=== PATIENT | female | born 1955 | race Caucasian/White ===

== ENCOUNTER → 2017-08-10 | Outpatient (CLI) | payer BC ==
--- NOTE | 2017-08-10 10:24 | MR ---
EXAMINATION TYPE: MR lumbar spine wo con DATE OF EXAM: 08/10/2017 COMPARISON: NONE HISTORY: Intervertebral disc disorder with radiculopathy-lumbar spine TECHNIQUE: Multiplanar, multisequence images of the lumbar spine were acquired. FINDINGS: Lumbar spine vertebral body heights are maintained. Extensive disc desiccation is seen at m ultiple levels. Schmorl's nodes are noted at the inferior endplate of L2 and superior endplate of L3 with no I signal within the discs to indicate discitis. Schmorl's node is also seen of the anterior s uperior endplate of L5. There is grade 1 anterolisthesis of L4 on L5, grade 1 retrolisthesis of L1 on L2 and grade 1 retrolisthesis of L2 on L3. Malalignment is likely on a degenerative basis. No focal bone marrow edema to suggest underlying fracture or linear T1 signal. Mild dextroscoliotic curvature is seen of the thoracolumbar junction on the localizer images. Multilevel undulation of the filum ter minale is seen from multilevel spinal canal stenosis. Conus medullaris is noted to lower limits of no rmal terminating at L2. Conus medullaris is of normal morphology. T12-L1: Left eccentric broad-based disc bulge results in mild left neural foraminal narrowing. Right neural foramen and spinal canal appear patent. Minimal ligamentum flavum buckling is seen. L1-L2: Central disc herniation/protrusion is superimposed upon a broad-based disc bulge. Facet arthro sheela contributes to severe left neural foraminal narrowing and moderate right neuroforaminal narrowi ng. Moderate spinal canal stenosis is seen as a result of the disc herniation and ligamentum flavum b uckling. L2-L3: There is a left lateral disc herniation superimposed upon a broad-based disc bulge create daria re left neural foraminal narrowing. Severe right neuroforaminal narrowing is also identified as a res ult of facet arthropathy and a broad-based disc bulge. Ligamentum flavum buckling is also seen at thi s level creating moderate spinal canal stenosis. L3-L4: Broad-based disc bulge, facet arthropathy and ligamentum flavum buckling contribute to moderat e to severe spinal canal stenosis focally, severe right neural foraminal narrowing and mild left neur al foraminal narrowing. L4-L5: Disc uncovering from the anterolisthesis is noted in combination with a broad-based disc bulge , facet arthropathy and ligamentum flavum buckling. There is resultant severe bilateral neural forami nal narrowing and severe spinal canal stenosis. L5-S1: There is a large broad-based disc bulge and facet arthropathy moderately narrowing the bilater al neural foramen. Spinal canal is patent. IMPRESSION: 1. Severe multilevel disc disease and mild dextroscoliosis of the thoracolumbar junction. 2. Central disc herniation at L1-L2 superimposed upon degenerative changes resulting in severe left n eural foraminal narrowing and moderate right neural foraminal narrowing as well as moderate spinal ca nal stenosis. 3. Left lateral disc herniation at L2-L3 in combination with degenerative changes create severe bilat eral neural foraminal narrowing and moderate spinal canal stenosis. 4. Degenerative disc disease at L3-L4 creates severe right neural foraminal narrowing, moderate spina l canal stenosis and mild left neural foraminal narrowing. 5. Degenerative disc disease and disc uncovering from grade 1 anterolisthesis of L4 and L5 combinatio n with degenerative changes resulting in severe bilateral neural foraminal narrowing and severe spina l canal stenosis. 6. Mild retrolisthesis of L1 on L2 and L2 on L3.
== END | disposition home or self-care (01) ==
LOC: RADMRIMAIN 08:58
PROVIDERS: ATTEND Family Medicine
DX: M48.061 Spinal stenosis, lumbar region without neurogenic claudication (principal); M51.16 Intervertebral disc disorders with radiculopathy, lumbar region; M99.73 Connective tissue and disc stenosis of intervertebral foramina of lumbar region; M43.16 Spondylolisthesis, lumbar region; M47.26 Other spondylosis with radiculopathy, lumbar region
CPT/HCPCS: 72148

== ENCOUNTER 2020-06-22 10:48 | Emergency (ER) | payer BC ==
[2020-06-22 11:08] VITALS: RESP 18; TEMP 98.8
--- NOTE | 2020-06-22 11:51 | ED ---
Extremity Problem HPI - General Chief complaint: Extremity Problem,Nontraumatic Stated complaint: lt shoulder pain Time Seen by Provider: 06/22/20 11:25 Source: patient, RN notes reviewed Mode of arrival: ambulatory Limitations: no limitations - History of Present Illness Initial comments: 64 year old female presents emergency Department chief complaint of left shoulder pain. Patient states she just started having pain after movement yesterday. She states she has no pain at rest that she has extreme pain she tries to move her shoulder states that causes her to cry. She has no chest pain or shortness breath she did take Leighton for pain which helped some. No paresthesias. No neck pain. Denies any falls or any trauma. - Related Data Allergies Allergy/AdvReac Type Severity Reaction Status Date / Time Penicillins Allergy Rash/Hives Verified 06/22/20 11:08 Review of Systems ROS Statement: Those systems with pertinent positive or pertinent negative responses have been documented in the HPI. ROS Other: All systems not noted in ROS Statement are negative. Past Medical History Past Medical History: No Reported History History of Any Multi-Drug Resistant Organisms: None Reported Past Surgical History: Orthopedic Surgery, Tonsillectomy Past Psychological History: Anxiety Smoking Status: Current every day smoker Past Alcohol Use History: None Reported Past Drug Use History: None Reported General Exam Limitations: no limitations General appearance: alert, in no apparent distress Head exam: Present: atraumatic, normocephalic, normal inspection ENT exam: Present: normal exam, normal oropharynx, mucous membranes moist Neck exam: Present: normal inspection, full ROM. Absent: tenderness, menin gismus, lymphadenopathy Respiratory exam: Present: normal lung sounds bilaterally. Absent: respiratory distress, wheezes, rales, rhonchi, stridor Cardiovascular Exam: Present: regular rate, normal rhythm, normal heart sounds. Absent: systolic murmur, diastolic murmur, rubs, gallop, clicks Extremities exam: Present: other (Left shoulder minimal tenderness with palpation patient reports marked severe pain with range of motion passive or active, limited radial pulses equal bilaterally Refill less than 2 seconds toe closing machine tender strength equal) Back exam: Present: full ROM. Absent: tenderness, paraspinal tenderness Neurological exam: Present: alert, oriented X3 Course Vital Signs 06/22/20 11:05 Temperature 98.8 F Pulse Rate 90 Respiratory 18 Rate Blood Pressure 173/69 O2 Sat by Pulse 98 Oximetry - Reevaluation(s) Reevaluation #1: 06/22/20 12:56 Patient reevaluated and updated on x-ray results she again denies she had any fall she has no other areas of tenderness with palpation on the left shoulder she is updated that CT will be ordered patient provided pain medication. Medical Decision Making - Medical Decision Making 64-year-old presented with left shoulder pain x-ray showed evidence of scapular fracture patient was reevaluated and had no other areas of localized tenderness CT was ordered patient refuses. He shouldn't denies any falls. Patient is not be intact. Patient is here with family member who states she is at her baseline. Patient be discharged to orthopedics return parameters were discussed Disposition Clinical Impression: Left scapula fracture Disposition: HOME SELF-CARE Condition: Stable Instructions (If sedation given, give patient instructions): Scapular Fracture (ED) Additional Instructions: Please return to the Emergency Department if symptoms worsen or any other concerns. Is patient prescribed a controlled substance at d/c from ED?: No Referrals: Pastor Roberts MD [Primary Care Provider] - 1-2 days Tavares Balderas MD [STAFF PHYSICIAN] - 1-2 days Time of Disposition: 13:39
--- NOTE | 2020-06-22 12:38 | XR ---
EXAMINATION TYPE: XR shoulder complete LT DATE OF EXAM: 06/22/2020 COMPARISON: NONE HISTORY pain. TECHNIQUE: Three views are submitted. FINDINGS: : Chronic appearing deformity of the left shoulder with severe arthropathy. There does appear to be a lucency through the acromium and spine of the scapula suggestive of fracture. IMPRESSION: 1. Findings are suggestive of a scapular fracture near the level of the acromium. Correlate with poin t tenderness. 2. Severe arthropathy of the glenohumeral joint with remodeling of the humeral head.
[2020-06-22] MEDS ORDERED: HYDROmorphone 1 MG/ML 1 ML SYRINGE IM STA (12:53)
[2020-06-22] MEDS ORDERED: HYDROcodone/APAP 5-325MG 1 EACH TAB PO STA (12:59)
[2020-06-22 14:10] VITALS: BP 189/92; PULSE 88
== END 2020-06-22 14:07 | disposition home or self-care (01) ==
LOC: EC 10:48
DX: S42.102A Fracture of unspecified part of scapula, left shoulder, initial encounter for closed fracture (principal); F17.200 Nicotine dependence, unspecified, uncomplicated; Z88.0 Allergy status to penicillin; X58.XXXA Exposure to other specified factors, initial encounter
CPT/HCPCS: 99283

== ENCOUNTER → 2021-02-24 | Outpatient (CLI) | payer BC ==
[2021-02-24 08:30] VITALS: BP 150/93; RESP 18; TEMP 97.8
--- NOTE | 2021-02-24 08:46 | P.PAINCN ---
History of Present Illness - Reason for Consult Consult date: 02/24/21 - History of Present Illness This is a 65-year-old patient referred by Dr. Martínez with a chief complaint of chronic pain in the left low back with radiation into the left posterior thigh. Patient says she's had the pain for many years. Pain is described as sharp stabbing and throbbing. Pain is made worse with physical activity to the point where she is now wheelchair-bound. Pain also worse with sitting. Pain is helped only minimally with her medication. Pain is worse in the morning. Currently 9 out of 10. In regards to management she is on a significant amount of Percocet taking 10 mg 4-5 times a day in addition to Xanax 0.5 mg 3 times a day. She has tried physical therapy and medical care administrator but that did not help at all, commenting that it actually made her pain worse. She had some type of injection of Dr. Fleming but she is not sure what it was and is not sure if it helped. . Patient denies adverse drug effects from medications. Patient also denies new-onset weakness, bowel/bladder incontinence, or any other signs or symptoms of cauda equina syndrome. There are no signs of acute intoxication, and no indications of medication diversion or overuse In addition to above, 13-point review of systems is also negative for chest pain, shortness of breath, changes in vision, changes in hearing, new onset weakness, abdominal pain, diarrhea, extreme fatigue, malaise, fever, skin changes, homicidal or suicidal ideation, or bowel or bladder incontinence. Physical exam: Vital Signs: Reviewed in EMR GENERAL: obese, wheelchair bound PSYCH: Mood and affect is appropriate. Awake, alert, and oriented SKIN: Skin color, texture, turgor normal, no rashes or lesions HEENT: Normocephalic, atraumatic. EOM intact CV: No pedal edema RESP: Respirations are unlabored, no audible wheezing GI: Abdomen non-distended MUSCULOSKELETAL: Bilateral upper and lower extremity strength is normal and symmetric. No atrophy or tone abnormalities are noted. Lumbar spine: Straight leg raising in the sitting position is negative for radicular pain. pain to palpation over the lumbar spine and paraspinous muscles. positive for pain with facet loading and back extension/rotation. decreased range of motion Buttocks: pain to palpation over the PSIS, Elissa test is positive on the left side Extremities: Peripheral joint ROM is limited due to pain in bilateral knees. Both knees appear edematous, have limited extension, and have crepitus on extension Gait: Very slow and limited NEUR: Bilateral upper and lower extremity coordination and muscle stretch reflexes are physiologic and symmetric. Negative clonus. No loss of sensation is noted. Cranial nerves are grossly intact. Imaging: Lumbar MRI L1-L2: Central disc herniation and protrusion superimposed upon a broad-based disc bulge. Severe facet arthropathy with left neural foraminal narrowing and moderate right neuroforaminal narrowing. Moderate spinal canal stenosis. L2-L3: Left lateral disc herniation superimposed upon a broad-based disc bulge with severe left neural foraminal and severe right neural foraminal narrowing. Moderate spinal canal stenosis L3-L4 broad-based disc bulge facet arthropathy and ligamentum flavum buckling with moderate to severe spinal canal stenosis with severe right neuroforaminal and moderate left neural foraminal narrowing L4-L5 disc uncovering with a broad-based disc bulge and severe bilateral neural foraminal narrowing and severe spinal canal stenosis. L5-S1 large broad based disc bulge and facet arthropathy with open spinal canal. Assessment: 1. Sacroiliitis 2. Lumbar spondylosis 3. Chronic opioid use Plan: 1. Explanation: Diagnoses, prognoses, and multiple treatment options including but not limited to physical therapy, interventional therapies, medication management and surgery were discussed with the patient and all questions were answered to the patient's satisfaction. 2. Investigations: None at this time 3. Counseling: The patient was counseled for 3 minutes on BODY MASS INDEX, EXERCISE. Specifically, the patient was instructed regarding the importance of weight control, and exercise in the context of both chronic pain and overall health. 4. Procedures: Given her constellation of symptoms with her left-sided SI joint injection. If this is not helpful we can consider left-sided L4-L5 transforaminal epidural steroid injection 5. Consultations: None 6. Medications: Long discussion with the patient regarding her medications. She is on a significant amount of Percocet as well as Xanax. I noted that taking these medications long-term can be detrimental to her pain but also her overall health. I did recommend possibly weaning off his medications. I encouraged her to talk to her prescriber about weaning off these medications. 7. Disposition: L SI joint injection I spent 50 minutes on patient care today. The time was used to review medical records including relevant urine studies and prescription history (MAPs), review of the available imaging, evaluation and examination the patient, coordination of care at the medical staff and if applicable referring physicians, as well as creation of the medical record. Past Medical History Past Medical History: No Reported History History of Any Multi-Drug Resistant Organisms: None Reported Past Surgical History: Orthopedic Surgery, Tonsillectomy Past Psychological History: Anxiety Smoking Status: Current every day smoker Past Alcohol Use History: None Reported Past Drug Use History: None Reported Medications and Allergies Home Medications Medication Instructions Recorded Confirmed Type ALPRAZolam [Xanax] 0.5 mg PO TID PRN 02/24/21 02/24/21 History Nabumetone [Relafen] 750 mg PO BID 02/24/21 02/24/21 History oxyCODONE-APAP 10-325MG [Percocet 10 - 325 mg PO Q6HR PRN 02/24/21 02/24/21 History 10-325 mg] Allergies Allergy/AdvReac Type Severity Reaction Status Date / Time Penicillins Allergy Rash/Hives Verified 06/22/20 11:08 PQRS Measure Charge Sheet Home Medications: Ambulatory Orders ALPRAZolam [Xanax] 0.5 mg PO TID PRN 02/24/21 Nabumetone [Relafen] 750 mg PO BID 02/24/21 oxyCODONE-APAP 10-325MG [Percocet 10-325 mg] 10 - 325 mg PO Q6HR PRN 02/24/21
[2021-02-24 08:48] VITALS: PULSE 83
== END ==
LOC: PNWHC3 07:46
PROVIDERS: ATTEND Anesthesiology
DX: M46.1 Sacroiliitis, not elsewhere classified (principal); M47.816 Spondylosis without myelopathy or radiculopathy, lumbar region; Z79.891 Long term (current) use of opiate analgesic; F41.9 Anxiety disorder, unspecified; F17.200 Nicotine dependence, unspecified, uncomplicated; Z88.0 Allergy status to penicillin
CPT/HCPCS: 99211

== ENCOUNTER → 2024-07-10 | Outpatient (CLI) | payer MEDICARE, OTHER | END | disposition home or self-care (01) | LOC: RADMAMWWP 10:30 | PROVIDERS: ATTEND Family Medicine | DX: Z53.9 Procedure and treatment not carried out, unspecified reason (principal) ==

== ENCOUNTER → 2025-02-20 | Outpatient (CLI) | payer MEDICARE, OTHER | END | disposition home or self-care (01) | LOC: RADUSWWP 08:19 | PROVIDERS: ATTEND Family Medicine | DX: Z53.9 Procedure and treatment not carried out, unspecified reason (principal) ==